=== PATIENT | female | born 1975 | race Hispanic/Latino ===

== ENCOUNTER → 2019-09-24 | Day surgery (SDC) | payer OTHER ==
[~2019-09-24] VITALS: Ht 157.5 cm; Wt 98.9 kg
[~2019-09-24] MED LIST: LORA10TA7 PO; LOSA50TA64 PO; MULT1CAP57 PO; PROPOFOL 10 MG/ML 20ML VIAL IV ONE; SODIUM CHLORIDE 0.9% 1000ML 1,000 ML IV ONE; VITA400C73 PO
[2019-09-24 10:21] VITALS: BP 110/58
[2019-09-24 10:23] LABS: BASOPHILS % (AUTO) 0.8 % (0.0-5.0); EOSINOPHILS % (AUTO) 1.1 % (0.0-8.0); HEMATOCRIT 39.5 % (36-48); MEAN CORPUSCULAR HEMOGLOBIN 31.4 pg (27.0-33.0); MEAN CORPUSCULAR HGB CONC 33.8 g/dL (32.0-36.0); MEAN CORPUSCULAR VOLUME 92.7 fL (79-99); NEUTROPHILS % (AUTO) 62.1 % (40.0-77.0); PLATELET COUNT (AUTO) 377 K/uL (130-400); RED BLOOD CELL COUNT(AUTO) 4.26 MIL/uL (4.00-5.50); RED CELL DISTRIBUTION WIDTH 14.3 % (11.0-15.5); WHITE BLOOD COUNT (AUTO) 8.7 K/uL (4.8-10.8)
[2019-09-24 10:42] LABS: INR 1.07 (0.85-1.15); PROTHROMBIN TIME 11.2 SEC (9.6-11.6)
[2019-09-24 11:36] VITALS: BP 115/70
[2019-09-24 11:40] VITALS: BP 125/77
[2019-09-24 11:45] VITALS: BP 126/80
[2019-09-24 11:51] VITALS: BP 136/79
== END ==
LOC: ENDO 08:43
PROVIDERS: ATTEND Internal Medicine
DX: R93.2 Abnormal findings on diagnostic imaging of liver and biliary tract (principal); K86.89 Other specified diseases of pancreas; I10 Essential (primary) hypertension; R19.7 Diarrhea, unspecified; K21.9 Gastro-esophageal reflux disease without esophagitis; F17.200 Nicotine dependence, unspecified, uncomplicated; Z98.84 Bariatric surgery status; Z79.01 Long term (current) use of anticoagulants; Z79.899 Other long term (current) drug therapy
CPT/HCPCS: 36415; 43237; 43239; 84703; 85025; 85610; A4215; A4221; A4222; A4223; A4606; A4620; A4663; J2704; J7030